=== PATIENT | male | born 1940 | race Two or more races ===

== ENCOUNTER 2019-01-19 04:04 | Emergency (ER) | payer OTHER ==
[~2019-01-19] VITALS: Ht 175.3 cm; Wt 72.6 kg
[2019-01-19] MEDS ORDERED: LEVETIRACETAM (500MG) 500 MG/5 ML VIAL IV ONE (04:20)
[2019-01-19] MEDS ORDERED: IV NS 0.9% 500 ML BAG IV ONE (04:30)
[2019-01-19] MEDS ORDERED: LEVETIRACETAM (500MG) 500 MG in IV NS 0.9% 100 ML IV ONE (04:30)
--- NOTE | 2019-01-19 04:39 | NUR ---
BIB AMBULANCE FOR S/P SEIZURE. A, OX3. NO OTHER COMPLAINT. HX OF SEIZURE, IV LINE STARTED. BLOOD DRAWN AND SENT TO THE LAB. MEDICATED ORDER. VSS. ON CONT MONITORING ,
[2019-01-19 04:40] LABS: BASOPHILS % (AUTO) 0.1 % (0.0-2.0); EOSINOPHILS % (AUTO) 0.1 % (0.0-6.0); HEMATOCRIT 45 % (39-51); HEMOGLOBIN 14.8 g/dL (13.5-17.5); LYMPHOCYTES # (AUTO) 2.4 /CMM (0.8-4.8); LYMPHOCYTES % (AUTO) 20.5 % (20.0-44.0); MEAN CORPUSCULAR HGB CONC 33 g/dl (31.0-36.0); MEAN CORPUSCULAR VOLUME 92 fL (80-96); MONOCYTES # (AUTO) 0.7 /CMM (0.1-1.30); MONOCYTES % (AUTO) 5.5 % (2.0-12.0); NEUTROPHILS # (AUTO) 8.8 /CMM (1.8-8.9); NEUTROPHILS % (AUTO) 73.8 % (43.0-81.0); PLATELET COUNT (AUTO) 208 /CMM (150-450); RED BLOOD CELL COUNT(AUTO) 4.91 MIL/uL (4.5-6.0); WHITE BLOOD COUNT (AUTO) 11.9 K/uL (4.3-11.0)
[2019-01-19] MEDS ORDERED: METOPROLOL TARTRATE INJ 5 MG/5 ML AMPUL ONE ×2 (04:42→06:01)
[2019-01-19 04:47] LABS: CALCIUM, SERUM 8.7 mg/dL (8.5-10.1); CARBON DIOXIDE 25 mmol/L (21-32); CHLORIDE 103 mmol/L (98-107); CREATININE 1.1 mg/dL (0.6-1.3); GLUCOSE 140 mg/dL (74-106); POTASSIUM 4.4 mmol/L (3.5-5.1); SODIUM SERUM 140 mmol/L (136-145); UREA NITROGEN, BLOOD 27 mg/dL (7-18)
[2019-01-19] MEDS ORDERED: METOPROLOL TARTRATE INJ 5 MG/5 ML AMPUL IV ONE ×2 (05:00→06:00)
[2019-01-19 05:01] LABS: ALANINE AMINOTRANSFERASE 41 U/L (12-78); ALBUMIN 3.9 g/dL (3.4-5.0); ALKALINE PHOSPHATASE 113 U/L (46-116); ASPARTATE AMINOTRANSFERASE 19 U/L (15-37); BILIRUBIN,DIRECT 0.1 mg/dL (0.0-0.2); BILIRUBIN,TOTAL 0.4 mg/dL (0.2-1.0); TOTAL PROTEIN, SERUM 7.7 g/dL (6.4-8.2)
[2019-01-19] MEDS ORDERED: METH4TAB17 PO (05:01)
[2019-01-19] MEDS ORDERED: OMEP20TA5 PO (05:01)
[2019-01-19] MEDS ORDERED: ASPI-1152 PO (05:02)
[2019-01-19] MEDS ORDERED: TAMS-12 PO (05:05)
[2019-01-19] MEDS ORDERED: BENA40TA8 PO (05:05)
[2019-01-19 05:06] LABS: ALCOHOL, BLOOD < 3 mg/dL (0-0)
[2019-01-19] MEDS ORDERED: ATOR40TA PO (05:06)
[2019-01-19] MEDS ORDERED: METH5TAB6 PO (05:06)
--- NOTE | 2019-01-19 05:47 | NUR ---
RESTING IN BED AWAKE AND ALERT. FAMILY AT THE BED SIDE. PT DENIED ANY PAIN OR DISCOMFORT AT THIS TIME. ON ONGOING MONITORING
--- NOTE | 2019-01-19 09:01 | NUR ---
RECEIVED A BED FROM [place] [id number] NURSE MARYLOU, PHONE # TO GIVE REPORT TO: [phone]. AMBULANCE ETA 45 MINS.
[2019-01-19 09:40] VITALS: BP 107/70
--- NOTE | 2019-01-19 09:40 | NUR ---
REPORT GIVEN TO MARYLOU RN AND MEDICAL LABORATORY ASSISTANT.
--- NOTE | 2019-01-19 09:50 | NUR ---
Patient Tranfers to outside Facility Physician: DR LOCO Location: [facility] PATIENT LEFT IN STABLE CONDITION VIA ACLS PROTOCOL. VSS. NO DISTRESS NOTED. IAN AT BEDSIDE. REPORT GIVEN TO MIXING MACHINE OPERATOR.
== END 2019-01-19 10:48 | disposition short-term general hospital (02) ==
LOC: ER 04:05
DX: R56.9 Unspecified convulsions (principal); I48.91 Unspecified atrial fibrillation; I10 Essential (primary) hypertension; I25.2 Old myocardial infarction; Z88.6 Allergy status to analgesic agent; Z79.82 Long term (current) use of aspirin; Z79.899 Other long term (current) drug therapy
CPT/HCPCS: 36415; 70450; 71045; 80048; 80076; 80307; 84484; 85025; 85730; 93005 ×2; 96365; 96375; 96376; 99285; J3490 ×2; J7030 ×2; G0480; J1953